=== PATIENT | male | born 1940 | race Caucasian/White ===

== ENCOUNTER 2020-06-06 17:13 | Inpatient (IN) | payer MEDICARE ==
[~2020-06-06] VITALS: Ht 172.7 cm; Wt 62.9 kg
[~2020-06-06 17:13] MED LIST: ACETIC ACID2 % AU; ALPRAZOLAM0.5 M1 PO; ALPRAZOLAM1 M1 PO; AMLODIPINE10 MG PO; ASPIRIN LOW DOS81 MG PO; BENAZEPRIL20 M1 PO; CIPROFLOXACN500 MG PO; CLONAZEP ODT1 MG PO; CLONAZEPAM1 MG PO; FLUARIX QUADRIV1 INJ IM; FLUZONE SPLT1 M1 IM; LEXAPRO10 MG PO; LEXAPRO20 MG PO; LORTAB 5 PO; PRAVASTATIN SOD20 MG PO; VENLAFAXINE H37.5 M1 PO; VENLAFAXINE75 M1 PO; ZOLPIDEM ER12.5 MG PO; ZOLPIDEM TART6.25 MG PO; ZOLPIDEM5 M1 PO
--- NOTE | 2020-06-06 17:18 | NUR ---
PATIENT TO ROOM VIA EMS AND PRACTIONER NOTIFIED OF PATIENT STATUS
--- NOTE | 2020-06-06 18:00 | NUR ---
COVID SWAB COLLECTED, ISOLATION PRECAUTIONS INITIATED.
[2020-06-06 18:34] LABS: HEMATOCRIT 40.4 % (39.0-50.0); IMMATURE GRANULOCYTES 0.3 % (0.0-5.0); MEAN CORPUSCULAR HGB 26.5 pG CALC (26.0-32.0); MEAN CORPUSCULAR HGB CONC 29.7 g/dL CAL (32.0-36.0); NEUT# 6.17 thou/uL (1.82-7.42); RED BLOOD COUNT 4.53 mill/uL (4.70-6.10); RED CELL DISTRI WIDTH 16.2 % (11.5-15.5)
[2020-06-06 18:37] LABS: MEAN CELL VOLUME 89.2 fL CALC (80.0-100.0)
--- NOTE | 2020-06-06 18:44 | NUR ---
REPORT GIVEN TO JAK MATA.
--- NOTE | 2020-06-06 18:51 | NUR ---
MD AT BEDSIDE TO DISCUSS RESULTS AND POC.
[2020-06-06 18:54] LABS: ALBUMIN 3.9 g/dL (3.2-5.0); ALKALINE PHOSPHATASE 113 u/l (38-126); BUN 48 mg/dL (8-23); BUN/CREATININE RATIO 40 (12-20 (CALC)); CHLORIDE 100 mmol/l (95-108); CREATININE 1.2 mg/dL (0.7-1.3); GFR 58 ML/MIN (>=60 (CALC)); GFR FOR AFR.AMER. > 60 ML/MIN (>=60 (CALC)); SGOT/AST 138 u/l (19-48); SODIUM 134 mmol/l (137-146); TOTAL PROTEIN 6.9 g/dL (6.3-8.2)
[2020-06-06 18:55] LABS: ANION GAP 8 (6-22 (CALC)); BILIRUBIN, TOTAL 0.6 mg/dL (0.0-1.4); CARBON DIOXIDE 32 mmol/l (22-30)
[2020-06-06 18:56] LABS: POTASSIUM 6.1 mmol/l (3.5-5.1)
--- NOTE | 2020-06-06 19:00 | NUR ---
PT SITTING UP IN STRETCHER, INTRODUCED MYSELF AND INFORMED HIM OF PLAN OF CARE.
--- NOTE | 2020-06-06 19:27 | NUR ---
INHALER WITH ALBUTEROL ADMINISTERED. TEACHING PT HOW TO USE IT.
[2020-06-06 19:31] LABS: ACT PARTIAL THROMBO TIME 22.8 SECONDS (20.0-32.5); INTERNATIONAL NORMALIZED RATIO 1.2 RATIO (0.7-1.3); PROTHROMBIN TIME 11.5 SECONDS (9.0-12.5)
--- NOTE | 2020-06-06 19:35 | NUR ---
RECEIVED MEDICATION FROM TRAVEL PTA AND GIVEN PER ORDER. PT STILL SITTING UP IN BED. PT HAS PULSE OX TO HEAD AND FINGERS ON EACH HAND DUE TO DAY SHIFT HAVING TROUBLE OBTAING SAT. PT'S FINGERS AND NAILS DIRTY AND STAINED FROM CIGARETTE SMOKING. PT'S HAIR ALL MATTED AND IS OVERALL UNKEPT. PT IS VERY PLEASANT AND COOPERATIVE.
--- NOTE | 2020-06-06 21:36 | NUR ---
STARTED PT ON HEPARTIN DRIP. BOLUS GIVEN AT 2053 AFTER ANTIBIOTIC FINISH BEFORE NEXT HUNG.
--- NOTE | 2020-06-06 22:06 | NUR ---
LAB IN FOR REPEAT TROPONIN LEVEL
--- NOTE | 2020-06-06 22:20 | NUR ---
ERPORT GIVEN TO ESPERANZA FIELDS
[2020-06-06 23:05] VITALS: BP 143/71
--- NOTE | 2020-06-06 23:05 | NUR ---
Admission Note Report Given to: ESPERANZA FIELDS Transported by: X Wheelchair Stretcher Transported with: X Nurse Transporter X Patent IV X O2 X [employer] Workers Location: ICU X MS2 HEPARIN GTT AT 15
[2020-06-06 23:30] VITALS: BP 143/71
--- NOTE | 2020-06-06 23:45 | NUR ---
RFECIEVED CALL FROM JEFF IN LAB WITH CRITICAL LAB [id number]. NEW ORDER RECIEVED. WILL CONT TO MONITOR.
[2020-06-07] VITALS (22 sets, daily range): BP systolic 83–142; BP diastolic 53–90
--- NOTE | 2020-06-07 | NUR ---
PATIENT ADMITTED FROM ER VIA W/C WITH ER STAFF IN ATTENDANCE. PATIENT WITH HEP GTT IN [facility]IA [facility] IV SITE AT 15CC/HR, 750UNITS/HR. SITE IS HEALTHY. PATIENT IS AWAKE ALERT AND ORIENTEDX3. PATIENT ASSISTED TO BED. PATIENT STATES THAT HE CAME TO THE ER TONIGHT FOR SOB AND STATES THAT HE ALSO HAD A FALL OUT OF BED A "COUPLE OF DAYS" AGO. C/O PAIN TO LEFT RIBS 10. MEDICATED WITH LORTAB 5/325MG PO FOR PAIN. TELE MONITOR IN PLACE. O2 VIA NASAL CANNULA IN PLACE-O2 SATS 93% ON O2. PATIENT ORIENTED TO ROOM AND SURROUNDINGS. INSTRUCTED ON USE OF NURSE CALL LIGHT SYSTEM, TV REMOPTE AND PHONE. SAFETY PRECAUTIONS REVIEWED WITH PATIENT. CALL LIGHT IN REACH. WILL CONT TO JESSIE.
--- NOTE | 2020-06-07 01:00 | NUR ---
RECIEVED CALL FROM ER THAT PATIENT IS NOW SHOWING RATE OF 150 SUSTAINED ON TELE. RESPONDED TO PATIENT ROOM. PATIENT RESTING WITH O2 VIA NASAL CANNULA IN PLACE. TELE MONITOR IN PLACE. PATIENT DENIES ANY PAIN OR SOB AT THIS TIME. VS TAKEN AND O2 SAT ONLY 88% ON O2 2LPM-INCREASED TO 3LPM. BP-109/58, HR STILL 150. DENIES ANY CHEST PAIN OR PALPATATIONS. EKG DONE AT BEDSIDE. TROP DRAWM. 0120-SPOKE WITH DR. ARIANNA LEEING CHANGE IN RHYTHM ON EKG-ORDER TO TRANSFER TO ICU RECIEVED. SPOKE NSG HOUSEHOLD ASSISTANT KIMBERLY MATA,-TRANSFER TO ICU.SPOKE WITH ZULMA MATA IN ICU AND REPORT WAS GIVEN. PATIENT TRANSFERRED TO ICU BED 2 VIA BED WITH O2 VIA NASAL CANNULA IN PLACE AND HEP GTT IN PROGRESS.
--- NOTE | 2020-06-07 01:50 | NUR ---
CALLED AND SPOKE TO DR KRUGER TO NOTIFY CURRENT PATIENT STATUS, CURRENT CRITICAL TROPONIN, NO COMPLAINTS OF CHEST PAIN. EKG PROVIDED. VITAL SIGNS.
--- NOTE | 2020-06-07 01:54 | NUR ---
NEW ORDERS RECIEVED FOR AMIODARONE 150MG IV PUSH BOLUS AND MANESIUM SULFATE 2 GRAMS IV X1.
--- NOTE | 2020-06-07 02:05 | NUR ---
AMIODARONE 150 MG IN 100 ML BAG OF NS BOLUS GIVEN.
--- NOTE | 2020-06-07 02:21 | NUR ---
NEW IV ON LFA 22 G STARTED, PT TOLERATES WELL.
--- NOTE | 2020-06-07 02:23 | NUR ---
PATIENT REQUESTS SNAK AND A DRINK, PROVIDED BY MID LEVEL PROVIDER.
--- NOTE | 2020-06-07 02:24 | NUR ---
PATIENT ARRIVES ON BED TO ICU BED 2, ON HEPARIN DRIP AT 750 UNITS/HR, ON 4 L/MIN NC. NO SOB NOTED, DENIES CHEST PAIN. ALERT AND ORIENTED X3. NURSE ASSESSMENT PERFORMED. WANTS A CIGARETTE, WAS EDUCTAED ON NOT ALLOWED TO SMOKE AND HEALTH RISKS. IS CALM. RAC IV INTACT, FLUSHES PROPERLY. HR 150'S, BP 90'S SYSTOLIC. PATIENT O2 SAT AT REST IS BETWEEN 90%-93%. SELF REPOSITIONS.
--- NOTE | 2020-06-07 03:01 | NUR ---
MAGNESIUM SULFATE INFUSING NOW, PATIENT IN NO ACUTE DISTRESS, HR RATE 90'S-130'S. BP 98/60. O2 SAT 93% ON 4 L/MIN NC. WAS ABLE TO EAT HIS SNACK AND DRINK JOCELYN CHATA.
--- NOTE | 2020-06-07 04:42 | NUR ---
MAGNESIUM SULFATE INFUSION HAS COMPLETED, LFA IV INTACT AND FLUSHES PROPERLY.
[2020-06-07 05:04] LABS: CHOLESTEROL HDL RATIO 2.2 (<4.4 (CALC)); MAGNESIUM 2.8 mg/dL (1.6-2.3)
--- NOTE | 2020-06-07 06:45 | NUR ---
RECIEVED REPORT FROM ESPERANZA MAYA. ASSUMED PT CARE.
--- NOTE | 2020-06-07 07:04 | NUR ---
PUMA FROM [facility] CALLED HERE FOR UPDATES ON PATIENT, TROPONIN LEVELS, AND NEW UPDATES. SHE ALSO REQUESTED A FACESHEET TO [phone].
--- NOTE | 2020-06-07 07:20 | NUR ---
FACE SHEET SENT TO [facility].
--- NOTE | 2020-06-07 08:05 | NUR ---
PT RESTING IN BED. ASSESSMENT COMPLETED. HEPARIN GTT CONTINUES, NO S/S OF BLEEDING, OR INFILTRATION NOTED AT THIS TIME. CALL LIGHT IN REACH. WILL MONITOR.
[2020-06-07 08:14] LABS: ANION GAP 10 (6-22 (CALC)); BUN 36 mg/dL (8-23); BUN/CREATININE RATIO 47 (12-20 (CALC)); CARBON DIOXIDE 28 mmol/l (22-30); CHLORIDE 102 mmol/l (95-108); CREATININE 0.8 mg/dL (0.7-1.3); GFR > 60 ML/MIN (>=60 (CALC)); GFR FOR AFR.AMER. > 60 ML/MIN (>=60 (CALC)); POTASSIUM 5.1 mmol/l (3.5-5.1); SODIUM 135 mmol/l (137-146)
--- NOTE | 2020-06-07 08:30 | NUR ---
DR. ANDRADE AT BEDSIDE FOR ASSESSMENT AND TO DISCUSS PLAN OF CARE. NEW ORDERS RECIEVED. TRANSFER TO [facility] CANCELLED.
[2020-06-07] MEDS ORDERED: LOVASTATIN40 M1 PO (09:06)
--- NOTE | 2020-06-07 10:40 | NUR ---
HEPARIN TITRATED PER PROTOCOL.
--- NOTE | 2020-06-07 12:00 | NUR ---
PT GIVEN CBB, LINEN CHANGED. PT TOLERATED WELL.
--- NOTE | 2020-06-07 14:00 | NUR ---
DR. URIBE AT BEDSIDE FOR ASSESSMENT AND TO DISCUSS PLAN OF CARE, NEW ORDERS RECIEVED.
--- NOTE | 2020-06-07 16:00 | NUR ---
PT RESTING IN BED, REQUESTED PAPER. REQUEST GRANTED.
--- NOTE | 2020-06-07 17:45 | NUR ---
NOTIFIED LAB SPOKE WITH KELI ON PENDING LAB.
--- NOTE | 2020-06-07 18:07 | NUR ---
LAB AT BEDSIDE FOR BLOOD DRAW.
--- NOTE | 2020-06-07 19:35 | NUR ---
PATIENT AWAKENS EASILY WHEN SPOKEN TO. DENIES PAIN. ORIENTED X4. ON 4 L/MIN NC, O2 SAT 94%, NO SOB NOTED. NURSE ASSESSMENT PERFORMED. IV X2 INTACT, FLUSH PROPERLY. HEPARIN DRIP INFUSING AT 900 UNITS/HR OR 18 ML/HR. SR ON TELEMETRY, HR 70'S-80'S. BP WNL. POC DISCUSSED, PATIENT UNDERSTANDS AND AGREES. DID NOT EAT HIS DINNER, HE REPORTS HE HAD FOOD EARLIER. SELF REPOSITIONS. URINE SAMPLE NEEDED, HE REPORTS HE WILL STAND UP TO VOID IN URINAL AND WILL USE CALL LIGHT WHEN HE IS READY. CALL LIGHT WITHIN REACH.
--- NOTE | 2020-06-07 21:46 | NUR ---
PATIENT ABLE TO SWALLOW HIS BEDTIME MEDICATION. NO ACUTE DISTRES SHOWN. NO COMPLAINTS. CALL LIGHT WITHIN REACH.
[2020-06-08] VITALS (57 sets, daily range): BP systolic 96–153; BP diastolic 56–79
--- NOTE | 2020-06-08 00:30 | NUR ---
PATIENT UP TO USE URINAL, ASSISTED BY PRODUCT DEVELOPMENT SCIENTIST. URINE SAMPLE COLLECTED. PT HEART RATE DOES ELEVATE WITH EXERTION. O2 SAT DROPS TO HIGH 80'S WITH EXRTION. NOW BACK IN BED. CALL LIGHT WITHIN REACH.
[2020-06-08 01:32] LABS: URINE BILIRUBIN - DIPSTICK NEGATIVE (NEGATIVE); URINE BLOOD DIPSTICK NEGATIVE (NEGATIVE); URINE COLOR YELLOW; URINE GLUCOSE - DIPSTICK NEGATIVE (NEGATIVE); URINE KETONE TRACE mg/dL (NEGATIVE); URINE LEUK ESTERASE NEGATIVE (NEGATIVE); URINE NITRITE - DIPSTICK NEGATIVE (Negative); URINE PH 6.5 (4.5-8.0); URINE PROTEIN - DIPSTICK NEGATIVE (NEG-TRACE); URINE SPECIFIC GRAVITY 1.015
--- NOTE | 2020-06-08 02:26 | NUR ---
PATIENT RESTS ON HIS SIDE, NO ACUTE DISTRESS SHOWN. HR 90'S-150 BPM. WILL CONTINUE TO MONITOR.
--- NOTE | 2020-06-08 04:05 | NUR ---
FLECANAIDE MEDICATION PROVIDED, PATIENT ABLE TO SWALLOW. NO ACUTE DISTRESS SHOWN. HEART RATE BETWEEN 90'S-120'S. NO COMPLAINTS OR NEEDS AT THIS TIME. CALL LIGHT WITHIN REACH.
[2020-06-08 04:16] LABS: HEMATOCRIT 39.1 % (39.0-50.0); HEMOGLOBIN 11.7 g/dl (14.0-18.0); IMMATURE GRANULOCYTES 0.4 % (0.0-5.0); MEAN CELL VOLUME 87.9 fL CALC (80.0-100.0); MEAN CORPUSCULAR HGB 26.3 pG CALC (26.0-32.0); MEAN CORPUSCULAR HGB CONC 29.9 g/dL CAL (32.0-36.0); NEUT# 9.43 thou/uL (1.82-7.42); RED BLOOD COUNT 4.45 mill/uL (4.70-6.10); RED CELL DISTRI WIDTH 16.4 % (11.5-15.5)
[2020-06-08 04:39] LABS: ALKALINE PHOSPHATASE 93 u/l (38-126); ANION GAP 5 (6-22 (CALC)); BILIRUBIN, TOTAL 0.4 mg/dL (0.0-1.4); BUN 25 mg/dL (8-23); BUN/CREATININE RATIO 41 (12-20 (CALC)); CARBON DIOXIDE 33 mmol/l (22-30); CHLORIDE 102 mmol/l (95-108); CREATININE 0.6 mg/dL (0.7-1.3); GFR > 60 ML/MIN (>=60 (CALC)); GFR FOR AFR.AMER. > 60 ML/MIN (>=60 (CALC)); MAGNESIUM 2.4 mg/dL (1.6-2.3); POTASSIUM 4.5 mmol/l (3.5-5.1); SGOT/AST 101 u/l (19-48); SODIUM 136 mmol/l (137-146)
[2020-06-08 04:40] LABS: TOTAL PROTEIN 5.5 g/dL (6.3-8.2)
--- NOTE | 2020-06-08 05:29 | NUR ---
LEO AND SPOKE TO DR ANDRADE TO NOTIFY PATIENT'S HEART RATE SUSTAINING 140'S 150'S, EKG WAS TAKEN, READS WIDE QRS TACHYCARDIA. NEW ORDERS PROVIDED.
--- NOTE | 2020-06-08 05:47 | NUR ---
5 MG IV PUSH OF CARDIZEM GIVEN, PATIENT IS AYPTOMATIC. NO ACUTE DISTRESS SHOWN. WILL CONTINUE TO MONITOR.
--- NOTE | 2020-06-08 06:10 | NUR ---
PATIENT AWAKENS EASILY WHEN SPOKEN TO. NO ACUTE DISTRES SHOWN.
--- NOTE | 2020-06-08 06:35 | NUR ---
2ND DOSE OF CARDIZEM 5MG IV PUSH GIVEN. PATIENT WAS SR AT 70-80'S FOR A FEW MINUTES THAN HR ELEVATED AGAIN TO 140'S. ASYMPTOMATIC.
--- NOTE | 2020-06-08 07:05 | NUR ---
REPORT RECEIVED FROM ESPERANZA MAYA. PT RESTING IN BED SEMI FOWLERS; ALERT AND ORIENTED. DENIES PAIN, BUT C/O RESTLESS LEG; DENIES SOB. RESPIRATIONS EVEN AND UNLABORED ON OXYGEN 4L VIA NC; SPO2 91-94%; SPO2 DECREASES TO 88% WHILE EATING OR ACTIVITY. PT HAS LOOSE NONPRODUCTIVE COUGH; ABDOMEN DISTENDED AND SOFT; POOR CIRCULATION TO BLE; HARDENED SKIN WITH VERY WEAK PEDAL PULSES AND SLUGGLIS CAP REFILL. PT APPEARS UNKEPT WITH DIRTY DRIED SKIN FLAKES AND LONG CURLING TOE NAILS; PT LIVES ALONE. 22G IV SITE TO LFA SALINE LOCKED; 20G IV TO RAC WITH HEPARIN GTT INFUSING AT 900 UNITS/HR; NEXT PTT SCHEDULED FOR TOMORROW MORNING 06/09 0500. CLAM SHUCKER IN PLACE AND HEART RATE IS IN THE 150'S AFTER 2 DOSES OF CARDIZEM IVP; RBBB AND WIDE QRS; PT IS ASYMPTOMATIC AND BLOOD PRESSURE IS STABLE. PT UPDATED ON PHYSICIANS ORDER FOR CARDIZEM GTT; STATES UNDERSTANDING. SAFETY MEASURES IN PLACE. CALL LIGHT WITHIN REACH.
--- NOTE | 2020-06-08 07:30 | NUR ---
CARDIZEM GTT INITIATED AT 10 MG/HR ALONG WITH NORMAL SALINE AT KVO PER PROTOCOL; IV SITE TO LFA FLUSHES AND IS PATENT.
--- NOTE | 2020-06-08 08:10 | NUR ---
CARDIZEM GTT TITRATED UP TO 15 MG/HR; HEART RATE REMAINS 150 BPM; BLOOD PRESSURE REMAINS STABLE.
--- NOTE | 2020-06-08 08:40 | NUR ---
DR. ANDRADE AT BEDSIDE; UPDATED ON SPO2 WITH OXYGEN IN PLACE AND COUGH. NEW ORDERS RECEIVED FOR ROCEPHIN, MUCINEX, AND HOLD FECAINIDE. 1V CXR FOR AM. WILL NOTIFY IF HEART RATE REMAINS ELEVATED ON CARDIZEM.
--- NOTE | 2020-06-08 09:40 | NUR ---
PER DR. URIBE DISCONTINUE CARDIZEM GTT AND START AMIODARONE GTT WITH BOLUS PER PROTOCOL IN AN ATTEMPT TO CONVERT CARDIAC RHYTHM. CARDIZEM TITRATED DOWN TO 10 MG/HR. ROCEPHIN INFUSING AT THIS TIME. PT STOOD AT BEDSIDE WITH STAND BY ASSIST TO VOID 250ML OF DARK YELLOW URINE INTO URINAL.
--- NOTE | 2020-06-08 10:15 | NUR ---
CARDIZEM GTT DC'D AT 1010. AMIDOARONE BOLUS STARTED NOW; PT EDUCATED ON MEDICATION. HR CURRENLTY 71; BLOOD PRESSURE STABLE.
--- NOTE | 2020-06-08 10:45 | NUR ---
HEART RHYTHM CONVERTED TO SINUS RHYTHM WITH IVCD AND PAC'S. AMIODARONE BOLUS COMPLETED AND GTT STARTED NOW AT 1 MG/MIN. WILL CONTINUE TO MONITOR VS CLOSELY. PT NEGATIVE FOR COVID; NOW ON STANDARD PRECAUTIONS; PT UPDATED.
--- NOTE | 2020-06-08 11:00 | NUR ---
FUNMILAYO MARCELO, CARDIO WARP TYING MACHINE KNOTTER AT BEDSIDE FOR PT EVAL; UPDATED ON CARDIAC RHYTHM AND VS. VERBAL ORDERS TO CONTINUE AMIODARONE GTT AND BEGIN ORAL AMIODARONE IN THE MORNING.
--- NOTE | 2020-06-08 13:00 | NUR ---
PT ATE 75% OF LUNCH; C/O FEELING HOT; AFEBRILE; ROOM COOLED AND ONE BLANKET REMOVED. VERY PLEASANT AND TALKATIVE. NO OTHER REQUESTS OR CONCERNS AT THIS TIME.
--- NOTE | 2020-06-08 15:08 | NUR ---
HEPARIN GTT CONTINUES TO INFUSE AT 900 UNITS/HR; AMIODARONE INFUSING AT 1 MG/MIN; NS AT KVO. HEART RATE 68. PT REPOSITIONING HIMSELF IN BED. OXYGEN REMAINS AT 4L VIA NC; RESPIRATIONS EVEN AND UNLABORED.
--- NOTE | 2020-06-08 16:45 | NUR ---
AMIODARONE TITRATED DOWN TO 0.5 MG/MIN. VENTOLIN INHALER PROVIDED AND PT EDUCATED ON BREATHING TECHNIUQES TO KEEP SPO2 GREATER THAN 92%; SPO2 HAS BEEN FROM 88-91% ON 4L. WILL CONTINUE TO MONITOR.
--- NOTE | 2020-06-08 17:32 | NUR ---
BELONGINGS DELIVERED BY FRIENDS. PT STOOD AT BEDSIDE TO VOID 325 ML OF URINE. IV SITE TO LFA LEAKING; DRESSING REPLACED AND SITE REINFORCED; WILL CONTINUE TO MONITOR. PT SITTING UP IN BED AND SET UP FOR DINNER.
--- NOTE | 2020-06-08 17:49 | NUR ---
SPO2 REMAINED BETWEEN 87-91% ON 4L VIA NC; PT NOW ON 6L OF HUMIDIFIED OXYGEN VIA HIGH FLOW NC. SPO2 CURRENTLY 94% WHILE EATING DINNER.
--- NOTE | 2020-06-08 19:45 | NUR ---
RESTING IN BED WATCHING TV. ALERT AND ORIENTED. RESP NON-LABORD AT REST. USING O2 AT 6 L HF NC, O2 SAT 93% BREATH SOUNDS DIMINISHED THROUGHOUT. BLE WITH PIGMENTATION CHANGES, DRY SCALY, LEATHERY SKIN. WEAK PEDAL PULSES. IV IN RAC WITH HEPARIN GTT INFUSING AT 900 UNITS/HR, SITE BENIGN. LFA IV WITH AMIODARONE GTT INFUSING AT 0.5 MG/MIN AND NS AT 20 ML/HR, SITE BENIGN. DISCUSSED PLAN OF CARE. PATIENT DENIES NEEDS AT THIS TIME. CALL MODI IN REACH. MONITOR SHOWS SR WITH BBB.
--- NOTE | 2020-06-08 21:30 | NUR ---
PATIENT STOOD AT BEDSIDE TO VOID. SLT UNSTEADY STANCE. VOIDED 300 ML CONCENTRATED MARIO URINE.
--- NOTE | 2020-06-08 22:00 | NUR ---
PATIENT RESTING WITH EYES CLOSED. RESP NON-LABORED AT REST. VSS.
--- NOTE | 2020-06-08 22:45 | NUR ---
O2 SAT DROPPED TO 85% PATIENT FOUND WITH O2 OFF. REPLACED O2 AND SAT QUICKLY RESPONDED BACK TO 92-93%
[2020-06-09] VITALS (21 sets, daily range): BP systolic 114–143; BP diastolic 56–106
--- NOTE | 2020-06-09 | NUR ---
RESTING WITH EYES CLOSED. RESP NON-LABORED. O2 ON AT 6 L HF NC.
--- NOTE | 2020-06-09 02:00 | NUR ---
PATIENT ASLEEP ON ROUNDS. RESP NON-LABORED AT REST. VSS.
--- NOTE | 2020-06-09 04:05 | NUR ---
VSS. O2 SAT DOES DROP TO MID 80'S WHEN O2 IS OFF. O2 ON NOW AT 6 L HF NC O2 SAT 91-93%
--- NOTE | 2020-06-09 05:00 | NUR ---
TURNSTILE COLLECTOR HERE FOR AM LAB DRAW.
[2020-06-09 06:09] LABS: HEMATOCRIT 39.7 % (39.0-50.0); HEMOGLOBIN 11.7 g/dl (14.0-18.0); IMMATURE GRANULOCYTES 0.5 % (0.0-5.0); MEAN CELL VOLUME 88.2 fL CALC (80.0-100.0); MEAN CORPUSCULAR HGB CONC 29.5 g/dL CAL (32.0-36.0); NEUT# 8.99 thou/uL (1.82-7.42); RED BLOOD COUNT 4.5 mill/uL (4.70-6.10); RED CELL DISTRI WIDTH 16.5 % (11.5-15.5)
--- NOTE | 2020-06-09 06:15 | NUR ---
RESTING IN BED. NO COMPLAINTS VOICED. VSS. AMIODARONE GTT CONTINUES AT 0.5MG/MIN AND HEPARIN GTT AT 900 UNITS/HR.
[2020-06-09 06:28] LABS: ANION GAP 6 (6-22 (CALC)); BUN 26 mg/dL (8-23); BUN/CREATININE RATIO 45 (12-20 (CALC)); CARBON DIOXIDE 30 mmol/l (22-30); CHLORIDE 105 mmol/l (95-108); CREATININE 0.6 mg/dL (0.7-1.3); GFR > 60 ML/MIN (>=60 (CALC)); GFR FOR AFR.AMER. > 60 ML/MIN (>=60 (CALC)); POTASSIUM 4.8 mmol/l (3.5-5.1); SODIUM 136 mmol/l (137-146)
--- NOTE | 2020-06-09 06:45 | NUR ---
REPORT RECEIVED FROM MIN MATA CARE ASSUMED.
--- NOTE | 2020-06-09 07:10 | NUR ---
PT RESTING IN BED WITH EYES CLOSED. AROUSES EAILY TO VERBAL STIMULI. PT IS ALERT AND ORIENTED X3. SHIFT ASSESSMENT COMPLETED AT THIS TIME. IV PATENT X2. CALL LIGHT IN REACH. WILL CONTINUE TO MONITOR.
--- NOTE | 2020-06-09 08:00 | NUR ---
DR ANDRADE AT BEDSIDE AT THIS TIME.
--- NOTE | 2020-06-09 08:15 | NUR ---
PT ASSISTED UP TO VOID THEN ASSISTED UP TO RECLINER. PT TOLERATED TRANSFER WELL. CALL LIGHT IN REACH. WILL CONTINUE TO MONITOR
--- NOTE | 2020-06-09 10:00 | NUR ---
PT SEATED UP IN CHAIR. RESP ARE EVEN AND UNLABORED. NO DISTRESS NOTED. VSS ON MONITOR. CALL LIHGT IN REACH. WILL CONTINUE TO MONITOR.
--- NOTE | 2020-06-09 12:00 | NUR ---
PT SITTING UP IN RECLINER WATCHING TV. RESP ARE EVEN AND UNLABORED. VSS ON MONITOR. CALL LIGHT IN REACH. WILL CONTINUE TO MONITOR.
--- NOTE | 2020-06-09 12:30 | NUR ---
PT STANDING UP AT SIDE OF RECLINER. ENCOURAGED PT TO CALL FOR ASSISTACNE. REINFORCED IMPORTANCE TO PREVENT FALL. PHYSICAL THERAPY CONSULT PLACED FOR WEAKNESS. CALL LIGHT IN REACH. O2 DECREASED TO 4L NC. WILL CONTINUE TO MONITOR
--- NOTE | 2020-06-09 14:00 | NUR ---
PT SEATED UP IN RECLINER AT BEDSIDE. RESP ARE EVEN AND UNLABORED. NO DISTRESS NOTED. CALL LIGHT IN REACH. WILL CONTINUE TOMONITOR.
--- NOTE | 2020-06-09 14:38 | NUR ---
physical therapy in room to see patient at this time.
--- NOTE | 2020-06-09 16:10 | NUR ---
ASSISTED PT WITH BATH. PT TOLERATED WELL
--- NOTE | 2020-06-09 18:00 | NUR ---
PT SITTING UP IN RECLINER. SET UP FOR PM MEAL AT THIS TIME. VSS ON MONITOR. CALLLIGHT IN REACH. WILL CONTINUE TO MONITOR.
--- NOTE | 2020-06-09 19:30 | NUR ---
SITTING UP IN RECLINER. ALERT AND WELL ORIENTED. O2 ON AT 3 L NC. RESP NON-LABORED AT REST. BREATH SOUNDS DIMINISHED THROUGHOUT. PRODUCE ASSOCIATE SHOWS SR WITH RBBB. DISCUSSED PLAN OF CARE. PATIENT STATES FEELS GOOD SITTING UP IN CHAIR AND WOULD LIKE TO STAY UP FOR AWHILE. CALL MODI IN REACH.
--- NOTE | 2020-06-09 21:00 | NUR ---
IV SITE IN RFA LEAKING AT SITE AND SLT EDEMATOUS. DC'D SITE WITH CATHETER INTACT.
--- NOTE | 2020-06-09 21:30 | NUR ---
NEW IV SITE STARTED IN RFA X2 ATTEMPTS. PATIENT REMAINS UP IN RECLINER. HS SNACK PROVIDED.
--- NOTE | 2020-06-09 22:00 | NUR ---
SITTING UP IN RECLINER READING. NO COMPLAINTS VOICED. VSS.
[2020-06-10] VITALS (11 sets, daily range): BP systolic 100–142; BP diastolic 57–76
--- NOTE | 2020-06-10 | NUR ---
ASSISTED BACK TO BED FOR THE NIGHT. VSS. IV SITE IN RFA FLUSHED AND PATENT, IVAB INFUSING.
--- NOTE | 2020-06-10 02:05 | NUR ---
RESTING WITH EYES CLOSED. RESP NON-LBAORED. VSS.
--- NOTE | 2020-06-10 04:00 | NUR ---
SLEEPING. RESP NON-LABORED AT REST. VSS. SR WITH RBBB ON MONITOR.
[2020-06-10 05:41] LABS: HEMATOCRIT 34.7 % (39.0-50.0); HEMOGLOBIN 10.2 g/dl (14.0-18.0); IMMATURE GRANULOCYTES 0.4 % (0.0-5.0); MEAN CELL VOLUME 88.3 fL CALC (80.0-100.0); MEAN CORPUSCULAR HGB CONC 29.4 g/dL CAL (32.0-36.0); NEUT# 6.97 thou/uL (1.82-7.42); RED BLOOD COUNT 3.93 mill/uL (4.70-6.10); RED CELL DISTRI WIDTH 16.3 % (11.5-15.5)
[2020-06-10 06:04] LABS: ANION GAP 6 (6-22 (CALC)); BUN 26 mg/dL (8-23); BUN/CREATININE RATIO 39 (12-20 (CALC)); C-REACTIVE PROTEIN < 0.5 mg/dL (0-0.9); CARBON DIOXIDE 32 mmol/l (22-30); CHLORIDE 104 mmol/l (95-108); CREATININE 0.7 mg/dL (0.7-1.3); GFR > 60 ML/MIN (>=60 (CALC)); GFR FOR AFR.AMER. > 60 ML/MIN (>=60 (CALC)); POTASSIUM 4.4 mmol/l (3.5-5.1); SODIUM 137 mmol/l (137-146)
--- NOTE | 2020-06-10 06:10 | NUR ---
ASSISTED UP TO BEDSIDE CHAIR. SALINE LOCK IN RFA FLUSHED AND PATENT-IVPB INFUSING AT THIS TIME. VSS. NO CHANGES TO REPORT.
--- NOTE | 2020-06-10 06:45 | NUR ---
REPORT RECEIVED FROM MIN MATA. CARE ASSUMED.
--- NOTE | 2020-06-10 07:20 | NUR ---
PT SEATED UP IN CHAIR AT THIS TIME. PT IS ALERT AND ORINETED X3. SHIFT ASSESSMENT COMPLETED AT THIS TIME. IV PATENT X1. VSS ON MONITOR. CALL LIGHT IN REACH. WILL CONTINUE TO MONITOR.
--- NOTE | 2020-06-10 08:00 | NUR ---
DR ANDRADE AT BEDSIDE WITH PATIENT TO DISCUSS PLAN OF CARE
--- NOTE | 2020-06-10 09:54 | NUR ---
PT SITTING UP IN RECLINER TALKING ON PHONED. RESP ARE EVEN AND UANLBORED. PT AWARE OF TRANSFER TO MED SURG. CALL LIGHT IN REACH. WILL CONTINUE TO MONITOR.
--- NOTE | 2020-06-10 11:52 | NUR ---
PT SITTING UP IN RECLINER. SET UP FOR NOON MEAL. VSS ON MONITOR. CALL LIGHT IN REACH. WILL CONTINUE TOMONITOR.
--- NOTE | 2020-06-10 13:21 | NUR ---
BANKRUPTCY LEGAL ASSISTANT AT BEDSIDE AT THIS TIME
--- NOTE | 2020-06-10 15:47 | NUR ---
PT RESTING IN BED WATCHING TV. RESP ARE EVEN AND UNLABORED. NO DISTRESS NOTED. CALL LIGHT IN REACH. WILL CONTINUE TO MONITOR.
--- NOTE | 2020-06-10 17:30 | NUR ---
REPORT FROM VAMSI MATA. ASSUMED PT CARE.
--- NOTE | 2020-06-10 18:01 | NUR ---
IV ABT COMPLETE. IV SITE FLUSHED AND SALINE LOCKED. NO APPARENT DISTRESS NOTED. PT SITTING UP IN BED EATING DINNER AT THIS TIME. WILL CONTINUE TO MONITOR.
--- NOTE | 2020-06-10 20:30 | NUR ---
RESTING IN BED ON ROUNDS. ALERT AND WELL ORIENTED. RESP NON-LABORED AT REST. O2 ON AT 2 L NC. BREATH SOUNDS DIMINISHED THROUGHOUT. OCC MOIST, NON-PRODUCTIVE COUGH PRESENT. VOIDS CLEAR MARIO URINE IN URINAL. VSS. DISCUSSED PLAN OF CARE. PROVIDED WITH HS SNACK. DENIES NEEDS AT THIS TIME. CALL MODI IN REACH.
--- NOTE | 2020-06-10 22:00 | NUR ---
SALINE LOCK IN RFA LEAKING AT SITE, DC'D WITH CATHETER INATCT. RESTARTED #22 IN RH X1 ATTEMPT.
--- NOTE | 2020-06-10 22:15 | NUR ---
PATIENT HAS ORDER FOR VENOFER-DISCUSSED MEDICATION WITH PATIENT INCLUDING POTENTIAL SIDE EFFECTS.
--- NOTE | 2020-06-10 22:50 | NUR ---
VENOFER INFUSED WITHOUT INCIDENT. NO COMPLAINTS VOICED BY PATIENT.
--- NOTE | 2020-06-10 23:04 | NUR ---
XANAX PO GIVEN FOR SLEEP PER PATIEN REQUEST.
[2020-06-11] VITALS (9 sets, daily range): BP systolic 90–144; BP diastolic 51–69
--- NOTE | 2020-06-11 | NUR ---
ASLEEP. RESP NON-LABORED. VSS. SR WITH IVCD ON MONITOR.
--- NOTE | 2020-06-11 02:05 | NUR ---
NO CHANGES TO REPORT. RESTING WITH EYES CLOSED. RESP NON-LABORED.
--- NOTE | 2020-06-11 04:15 | NUR ---
JUAN A HAS SLEPT FOR LONG INTERVALS. VSS. RESP NON-LABORED.
--- NOTE | 2020-06-11 06:00 | NUR ---
PATIENT AWAKE ON ROUNDS. NO COMPLAINTS VOICED. VSS. SALINE LOCK IN RH FLUSHED AND PATENT, SITE BENIGN.
--- NOTE | 2020-06-11 06:45 | NUR ---
RECIEVED REPORT FROM ESPERANZA CERNA. ASSUMED PT CARE.
--- NOTE | 2020-06-11 08:45 | NUR ---
DR. KRUGER AT BEDSIDE FOR ASSESSMENT AND TO DISCUSS PLAN OF CARE. NEW ORDERS RECIEVED. CALL LIGHT IN REACH. WILL MONITOR.
--- NOTE | 2020-06-11 10:30 | NUR ---
PT ASSISTED TO BSC, JOHN OSBORN. PT THEN ASSISTED BACK TO BED.
--- NOTE | 2020-06-11 12:00 | NUR ---
PT ASSISTED TO RECLINER, SET UP FOR BATH. FULL LINEN CHANGE DONE. PT TOLERATED WELL. REMAINS IN RECLINER. WILL MONITOR.
--- NOTE | 2020-06-11 13:25 | NUR ---
PT TRANSFERRED TO ICU BED 7, TOLERATED WELL. PT REMAINS SITTIN UP IN RECLINER. CALL LIGHT IN REACH. WILL MONITOR.
--- NOTE | 2020-06-11 15:01 | NUR ---
PT REMAINS SITTING IN RECLINER, PLAYING HARMONICA. CALL LIGHT IN REACH. WILL MONITOR.
--- NOTE | 2020-06-11 16:46 | NUR ---
PT CALLED ASKING FOR SNACK, SNACK GIVEN. PT REMAINS SITTING UP IN RECLINER. CALL LIGHT IN REACH. WILL MONITOR.
--- NOTE | 2020-06-11 18:00 | NUR ---
PATIENT IS AWAKE, ORIENTED X4, SITS ON RECLINER. ABLE TO SWALLOW HIS EVENING MEDICATIONS. ON 2 L/MIN NC, NO SOB NOTED, O2 SAT IS 98%. NURSE ASSESSMENT PERFORMED. HAS BILATERAL EQUAL CSW. NO COMPLAINTS AT THIS TIME. SR ON TELEMETRY. BP WNL. DOES REQUESTS XANAX FOR TONIGHT. URINAL EMPTIED, URINE IS TEA COLORED. CALL LIGHT WITHIN REACH.
--- NOTE | 2020-06-11 18:28 | NUR ---
NEW IV PLACED ON RFA, OLD IV ON R-HAND LEAKING. PATIENT NOW EATING, NO ACUTE DISTRESS SHOWN.
--- NOTE | 2020-06-11 19:15 | NUR ---
IV ANTIBIOTIC FINISHED INFUSING , NEW IV SITE INTACT, FLUSHES PROPERLY. PT CONTINUES TO EAT. NO ACUTE DISTRES SHSOWN.
--- NOTE | 2020-06-11 20:47 | NUR ---
PATIENT ABLE TO TOLERATE BEDTIME MEDICATIONS, XANAX PRN GIVEN PER PT REQUEST, CONTINUES TO SIT ON RECLINER, SNACK PROVIDED. CALL LIGHT WITHIN REACH.
[2020-06-12] VITALS (10 sets, daily range): BP systolic 99–164; BP diastolic 50–79
--- NOTE | 2020-06-12 00:28 | NUR ---
PATIENT LAYS IN MORALES'S POSITION. RESTS WITH EYES CLOSED. AWAKENS WITH VERBAL STIMULI. NO ACUTE DISTRESS SHOWN. CALL LIGHT WITHIN REACH.
--- NOTE | 2020-06-12 03:53 | NUR ---
PATIENT RESTS WITH EYES CLOSED. NO ACUTE DISTRESS SHOWN. CALL LIGHT WITHIN REACH.
--- NOTE | 2020-06-12 05:29 | NUR ---
PATIENT IS AWAKE, RECEIVING BREATHING TX.
--- NOTE | 2020-06-12 05:39 | NUR ---
PATIENT IS AWAKE, REQUESTS SNACK, PROVIDED. NO ACUTE DISTRESS SHOWN. CALL LIGHT WITHIN REACH.
[2020-06-12 06:11] LABS: HEMATOCRIT 33.4 % (39.0-50.0); HEMOGLOBIN 9.8 g/dl (14.0-18.0); MEAN CORPUSCULAR HGB 25.5 pG CALC (26.0-32.0); MEAN CORPUSCULAR HGB CONC 29.3 g/dL CAL (32.0-36.0); RED BLOOD COUNT 3.84 mill/uL (4.70-6.10); RED CELL DISTRI WIDTH 16.4 % (11.5-15.5)
[2020-06-12 06:30] LABS: ANION GAP 6 (6-22 (CALC)); BUN 26 mg/dL (8-23); BUN/CREATININE RATIO 29 (12-20 (CALC)); CARBON DIOXIDE 33 mmol/l (22-30); CHLORIDE 102 mmol/l (95-108); CREATININE 0.9 mg/dL (0.7-1.3); GFR > 60 ML/MIN (>=60 (CALC)); GFR FOR AFR.AMER. > 60 ML/MIN (>=60 (CALC)); POTASSIUM 4.6 mmol/l (3.5-5.1); SODIUM 136 mmol/l (137-146)
--- NOTE | 2020-06-12 06:45 | NUR ---
RECIEVED REPORT FROM ESPERANZA MAYA. ASSUMED PT CARE.
--- NOTE | 2020-06-12 08:30 | NUR ---
PT A&OX4, ABLE TO MAKE NEEDS KNOWN. ASSESSMENT COMPLETED. NO DISTRESS NOTED AT THIS TIME.
--- NOTE | 2020-06-12 09:30 | NUR ---
DR. KRUGER AT BEDSIDE FOR ASSESSMENT AND TO DISCUSS PLAN OF CARE, NEW ORDERS RECIEVED.
--- NOTE | 2020-06-12 10:30 | NUR ---
IS PLACED AT BEDSIDE. PT EDUCATED, DEMONSTRATED AND RETURNED DEMONSTRATION. CALL LIGHT IN REACH.
--- NOTE | 2020-06-12 12:00 | NUR ---
PT ASSISTED TO RECLINER, PT PLAYING HARMONICA. NO DISTRESS NOTED
--- NOTE | 2020-06-12 14:00 | NUR ---
PT SITTING IN RECLINER, PLAYING HARMONICA. NO DISTRESS NOTED AT THIS TIME.
--- NOTE | 2020-06-12 18:03 | NUR ---
PT REMAINS IN RECLINER, WATCHING TV, EATING DINNER. NO DISTRESS NOTED AT THIS TIME. CALL LIGHT IN REACH. WILL MONITOR.
--- NOTE | 2020-06-12 19:09 | NUR ---
PATIENT SITS IN RECLINER, NO ACUTE DISTRESS SHOWN. NO COMPLAINTS OR NEEDS AT THIS TIME. CALL LIGHT WITHIN REACH.
--- NOTE | 2020-06-12 20:05 | NUR ---
PATIENT LAYS IN HIGH MORALES'S, IS AWAKE, ORIENTED X4. IS ON 2 L/MIN NC, NO SOB NOTED. NURSE ASSESSMENT PERFORMED. RFA IV INTACT, FLUSHES PROPERLY, SALINE LOCKED. SR ON TELEMETRY. INCENTIVE SPIROMETER AT BEDSIDE. NO COMPLAINTS OF PAIN. NO NEEDS AT THIS TIME. CALL LIGHT WITHIN REACH.
[2020-06-12 20:47] LABS: ALBUMIN 3.3 g/dL (3.2-5.0); ALKALINE PHOSPHATASE 107 u/l (38-126); ANION GAP 10 (6-22 (CALC)); BILIRUBIN, TOTAL 0.5 mg/dL (0.0-1.4); BUN 27 mg/dL (8-23); BUN/CREATININE RATIO 34 (12-20 (CALC)); CARBON DIOXIDE 30 mmol/l (22-30); CHLORIDE 102 mmol/l (95-108); CREATININE 0.8 mg/dL (0.7-1.3); GFR > 60 ML/MIN (>=60 (CALC)); GFR FOR AFR.AMER. > 60 ML/MIN (>=60 (CALC)); POTASSIUM 4.4 mmol/l (3.5-5.1); SGOT/AST 34 u/l (19-48); SODIUM 136 mmol/l (137-146); TOTAL PROTEIN 5.8 g/dL (6.3-8.2)
--- NOTE | 2020-06-12 22:01 | NUR ---
PATIENT ABLE TO SWALLOW ALL OF BEDTIME MEDICATIONS, XANAX GIVEN PER REQUEST. SNACKS AND JOCELYN CHATA PROVIDED PER EQUEST. NO ACUTE DISTRESS SHOWN. CALL LIGHT WITHIN REACH.
[2020-06-13] VITALS (10 sets, daily range): BP systolic 111–139; BP diastolic 53–92
--- NOTE | 2020-06-13 00:30 | NUR ---
PATIENT AWAKENS EASILY WITH VERBAL STIMULI. NO ACUTE DISTRESS SHOWN. IV ANTIBIOTIC INFUSING THROUGH HIS RFA IV WHICH IS INTACT AND FLSUHES PROPERLY.
--- NOTE | 2020-06-13 03:23 | NUR ---
PATIENT IS AWAKE, SITS ON SIDE OF BED. EMPTIED URINAL, URINE CONTINUE TO BE TEA/BLOOD COLORED. LAYS BACK IN BED. NO ACUTE DISTRES SHOWN. CALL LIGHT WITHIN REACH.
--- NOTE | 2020-06-13 05:20 | NUR ---
PATIENT'S O2 TITRATED FROM 2 L/MIN TO 3 L/MIN NC. O2 WAS 90% ON 2 L/MIN NC.
--- NOTE | 2020-06-13 05:54 | NUR ---
PATIENT REQUESTS A BEDSIDE COMMODE. [employer]GER PROVIDED. NO ACUTE DISTRESS SHOWN. CALL LIGHT WITHIN REACH.
--- NOTE | 2020-06-13 06:45 | NUR ---
REPORT RECEIVED FROM ZULMA MATA. CARE ASSUMED.
--- NOTE | 2020-06-13 07:15 | NUR ---
PT RESTING IN BED AWAKE AND WATCHING TV. PT IS ALERT AND ORIENTED X3. SHIFT ASSESSMENT COMPLETED AT THIS TIME. IV PATENT X1. CALL LIGHT IN REACH. WILL CONTINUE TO MONITOR,
[2020-06-13] MEDS ORDERED: XARELTO20 MG PO (07:41)
[2020-06-13] MEDS ORDERED: PREDNISONE10 MG PO (07:42)
[2020-06-13] MEDS ORDERED: CORDARONE/200 MG/TAB PO (07:43)
[2020-06-13] MEDS ORDERED: LORTAB5 PO (07:46)
--- NOTE | 2020-06-13 07:49 | NUR ---
DR KRUGER AT BEDSIDE TO SEE PATIENT.
--- NOTE | 2020-06-13 09:12 | NUR ---
RT AT BEDSIDE FOR WALK TEST
--- NOTE | 2020-06-13 10:00 | NUR ---
PT RESTING IN BED AWAKE WATCHING TV. RESP ARE EVEN AND UNLABORED. NO DISTRESS NOTED. CALL LIGHT IN REACH. WILL CONTINUE TO MONITOR.
--- NOTE | 2020-06-13 11:54 | NUR ---
PT SET UP FOR NOON MEAL AT THIS TIME. RESP ARE EVEN AND UNLABORED. PT AWAITING DC. CALLLIGHT IN REACH. WILL CONTINUE TO MONITOR.
--- NOTE | 2020-06-13 13:00 | NUR ---
DISCHARGE INSTRUCTIONS REVIEWED WITH PATIENT. PATIENT VERBALIZED UNDERSTANDING. WILL CALL FOR TAXI TO [employer]
--- NOTE | 2020-06-13 13:30 | NUR ---
Discharge instructions given. Patient verbalizes understanding of same. Discharged in stable condition via Wheelchair to Home with staff. All belongings sent with pt.
== END 2020-06-13 13:30 | disposition home health service (06) | DRG 190 ==
LOC: ED 17:13 → ED-I 17:32 → ED 17:32 → ED-I 18:45 → ED 19:03 → MS2 19:04 → ICU 06-07 01:30
PROVIDERS: Internal Medicine; ADMIT Internal Medicine; ATTEND Internal Medicine
DX: J43.9 Emphysema, unspecified (principal); J96.21 Acute and chronic respiratory failure with hypoxia; J96.22 Acute and chronic respiratory failure with hypercapnia; I21.4 Non-ST elevation (NSTEMI) myocardial infarction; J18.9 Pneumonia, unspecified organism; I48.19 Other persistent atrial fibrillation; S20.212A Contusion of left front wall of thorax, initial encounter; D50.9 Iron deficiency anemia, unspecified; Z20.828 Contact with and (suspected) exposure to other viral communicable diseases; I10 Essential (primary) hypertension; I45.10 Unspecified right bundle-branch block; I65.23 Occlusion and stenosis of bilateral carotid arteries; E78.5 Hyperlipidemia, unspecified; F41.9 Anxiety disorder, unspecified; F32.9 Major depressive disorder, single episode, unspecified; G47.30 Sleep apnea, unspecified; G47.00 Insomnia, unspecified; M10.9 Gout, unspecified; F17.210 Nicotine dependence, cigarettes, uncomplicated; Z79.82 Long term (current) use of aspirin; Z79.899 Other long term (current) drug therapy; W06.XXXA Fall from bed, initial encounter; Y92.013 Bedroom of single-family (private) house as the place of occurrence of the external cause
CPT/HCPCS: J0282; J1644; J1756; J3475